=== PATIENT | male | born 1975 | race Two or more races ===

== ENCOUNTER 2021-04-08 22:49 | Emergency (ER) | payer BC ==
[2021-04-08] MEDS ORDERED: Albuterol 8 GM Inhaler INH ONE (23:03)
[2021-04-09 00:05] LABS: CORONAVIRUS COVID-19 NAA POSITIVE (NEGATIVE); INFLUENZA A NAA NEGATIVE (NEGATIVE); INFLUENZA B NAA NEGATIVE (NEGATIVE)
== END 2021-04-09 00:18 | disposition home or self-care (01) ==
LOC: MW.ED 22:49
DX: U07.1 COVID-19 (principal); J12.82 Pneumonia due to coronavirus disease 2019
CPT/HCPCS: 0240U; 71046; 99284; A9270

== ENCOUNTER 2022-03-03 04:29 | Observation (INO) | payer BC ==
[2022-03-03] MEDS ORDERED: Sodium Chloride 0.9% 2.5 ML Syringe FLUSH PRN (05:28)
[2022-03-03] MEDS ORDERED: Sodium Chloride 0.9% 10 ML Syringe FLUSH PRN (05:28)
[2022-03-03] MEDS ORDERED: Sodium Chloride 0.9% 1,000 ML IV ONE (05:53)
[2022-03-03] MEDS ORDERED: Ondansetron 4 MG/2 ML SDV IVPUSH ONE (05:53)
[2022-03-03] MEDS ORDERED: Morphine 4 MG/ML Syringe IVPUSH ONE (06:17)
[2022-03-03 06:19] LABS: CARBON DIOXIDE,CO2 26.2 mmol/L (21.0-32.0); POTASSIUM,K 4.1 mmol/L (3.5-5.1)
[2022-03-03] MEDS ORDERED: Iopamidol 755 MG/ML 500 ML Multipack Bottle IVPUSH STA (06:56)
[2022-03-03] MEDS ORDERED: Piperacillin/Tazobactam 4.5 GM in Sodium Chloride 0.9% 100 ML IV ONE (07:15)
[2022-03-03] MEDS ORDERED: Morphine 2 MG/ML SYRINGE IVPUSH ONE (07:18)
[2022-03-03] MEDS ORDERED: Bupivacaine 0.25% 30 ML SDV ONE (10:25)
[2022-03-03] MEDS ORDERED: Bupivacaine 0.25%/EPINEPHrine 1:200,000 10 ML SDV ONE (10:26)
[2022-03-03] MEDS ORDERED: Lidocaine 2% 5 ML SDV ONE (10:26)
[2022-03-03] MEDS ORDERED: Piperacillin/Tazobactam 3.375 GM in Sodium Chloride 0.9% 50 ML IV SCH (11:15)
[2022-03-03] MEDS ORDERED: fentaNYL 250 MCG/5 ML SDV ONE (12:16)
[2022-03-03] MEDS ORDERED: Propofol 200 MG/20 ML SDV ONE (12:16)
[2022-03-03] MEDS ORDERED: Rocuronium Bromide 50 MG/5 ML Syringe ONE ×2 (12:16→14:19)
[2022-03-03] MEDS ORDERED: Morphine 2 MG/ML SYRINGE IVPUSH PRN (12:31)
[2022-03-03] MEDS ORDERED: HYDROmorphone 1 MG/ML Syringe IVPUSH PRN ×2 (12:31→15:05)
[2022-03-03] MEDS ORDERED: Ondansetron 4 MG/2 ML SDV IVPUSH PRN ×2 (12:31→15:05)
[2022-03-03] MEDS ORDERED: Albuterol 0.083% 2.5 MG/3 ML Neb Soln NEB PRN (12:31)
[2022-03-03] MEDS ORDERED: fentaNYL 50 MCG/ML SDV IVPUSH PRN (12:31)
[2022-03-03] MEDS ORDERED: Naloxone 0.4 MG/ML SDV IVPUSH PRN (12:31)
[2022-03-03] MEDS ORDERED: Metoclopramide 10 MG/2 ML SDV IVPUSH PRN (12:31)
[2022-03-03] MEDS ORDERED: Bupivacaine 0.5% 30 ML SDV ONE (12:45)
[2022-03-03] MEDS ORDERED: Lactated Ringers 1,000 ML IV SCH ×2 (13:15→15:15)
[2022-03-03] MEDS: Piperacillin/Tazobactam 3.375 GM in Sodium Chloride 0.9% 50 ML IV SCH ×2 (14:00→19:42)
[2022-03-03] MEDS ORDERED: Dexamethasone 4 MG/ML 5 ML MDV ONE (14:19)
[2022-03-03] MEDS ORDERED: Ondansetron 4 MG/2 ML SDV ONE (14:19)
[2022-03-03] MEDS ORDERED: Ketorolac 30 MG/ML SDV ONE (14:19)
[2022-03-03] MEDS ORDERED: Metoprolol Tartrate 5 MG/5 ML SDV ONE (14:19)
[2022-03-03] MEDS ORDERED: Albumin 5% 0 ML ONE (14:27)
[2022-03-03] MEDS ORDERED: Acetaminophen/HYDROcodone 325-10 MG Tab PO PRN ×2 (15:05→19:42)
[2022-03-03] MEDS ORDERED: ePHEDrine 50 MG/ML SDV ONE (15:58)
[2022-03-03] MEDS ORDERED: Phenylephrine 1% 10 MG/ML SDV ONE (15:58)
[2022-03-03] MEDS ORDERED: Glycopyrrolate 0.2 MG/ML SDV ONE (15:58)
[2022-03-03] MEDS ORDERED: LORazepam 2 MG/ML SDV IVPUSH PRN (18:52)
[2022-03-04] MEDS: Piperacillin/Tazobactam 3.375 GM in Sodium Chloride 0.9% 50 ML IV SCH ×2 (01:11→07:36)
== END 2022-03-04 12:00 | disposition home or self-care (01) ==
LOC: MW.ED 04:29 → MW.MS 09:07 → INTOOBSV 09:07
PROVIDERS: ADMIT Surgery; ATTEND Surgery
DX: K35.80 Unspecified acute appendicitis (principal); G25.81 Restless legs syndrome; K21.9 Gastro-esophageal reflux disease without esophagitis; Z79.899 Other long term (current) drug therapy; Z20.822 Contact with and (suspected) exposure to COVID-19
CPT/HCPCS: 36415; 44970; 74022; 74177; 80053; 81003; 82553; 83690; 84484; 85025; 87635; 93005; J0131; J1100; J1885; J2270; J2370; J2405; J2543; J2704; J3010; J3490; J7030; J7120; Q9967; 00840; 64488; 96361; 96365; 96375; 96376; 99202; 99285-25; J7050; P9045; U0002